=== PATIENT | male | born 1990 | race Caucasian/White ===

== ENCOUNTER → 2016-12-04 | Outpatient (CLI) | payer OTHER | LOC: BMCIMAGING 14:03 | PROVIDERS: ATTEND Family Medicine | DX: I86.1 Scrotal varices (principal); N43.3 Hydrocele, unspecified; N50.812 Left testicular pain ==

== ENCOUNTER 2018-05-19 21:39 | Observation (INO) | payer OTHER ==
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
[2018-05-19] MEDS ORDERED: IBUPROFEN 800 MG TAB PO ONE (22:00)
[2018-05-19] MEDS ORDERED: NS 1,000 ML IV ONE (23:07)
[2018-05-19] MEDS ORDERED: BUPIVACAINE 0.5% 30 ML SDV ONE (23:22)
[2018-05-19 23:35] LABS: PLATELET COUNT 219 10^3/uL (150-400)
[2018-05-19] MEDS ORDERED: HYDROmorphONE/DILAUDID 2 MG/ML INJ IVP ONE (23:38)
[2018-05-19] MEDS ORDERED: HYDROmorphONE/DILAUDID 1 MG/ML INJ ONE (23:38)
--- NOTE | 2018-05-20 00:04 | PDANEPAE ---
ANE History of Present Illness ruptured L testicle ANE Past Medical History - Pulmonary History Hx Oxygen in Use at Home: No - Endocrine History Hx Diabetes: No ANE Review of Systems Review of Systems: - Exercise capacity Exercise capacity: >=4 METS ANE Patient History - Allergies Allergies/Adverse Reactions: shellfish derived Allergy (Verified 05/19/18 21:41) - NPO status NPO Since - Liquids (Date): 05/19/18 NPO Since - Liquids (Time): 21:00 (seltzer water) NPO Since - Solids (Date): 05/19/18 NPO Since - Solids (Time): 16:30 (food) - Anes Hx Anes Hx: no prior problems - Smoking Hx Smoking Status: Former smoker - Alcohol Use Alcohol Use: Occasionally - Family Anes Hx Family Anes Hx: none ANE Labs/Vital Signs - Labs Result Diagrams: 05/19/18 23:20 05/19/18 23:20 - Vital Signs Blood Pressure: 137/82 Heart Rate: 91 Respiratory Rate: 16 O2 Sat (%): 99 Height: 193.04 cm Weight: 81.647 kg ANE Physical Exam - Airway Neck exam: FROM Mallampati Score: Class 1 Mouth exam: normal dental/mouth exam, walls - Pulmonary Pulmonary: no respiratory distress - Cardiovascular Cardiovascular: regular rate and rhythym - ASA Status ASA Status: I ANE Anesthesia Plan Anesthesia Plan: general endotracheal anesthesia
[2018-05-20] MEDS ORDERED: fentaNYL 100 MCG/2 ML INJ ONE (00:24)
[2018-05-20] MEDS ORDERED: PROPOFOL/EMULSION 500 MG/50 ML BOTTLE IV ONE (00:24)
[2018-05-20] MEDS ORDERED: LIDOCAINE 2% 100 MG/5 ML SYR ONE (00:28)
[2018-05-20] MEDS ORDERED: ceFAZolin 2 GM/DEXTROSE 100 ML IV ONE (00:30)
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
[2018-05-20] MEDS ORDERED: DEXAMETHASONE 4 MG/ML VIAL ONE ×2 (00:52)
[2018-05-20] MEDS ORDERED: ONDANSETRON 4 MG/2 ML VIAL ONE (00:52)
[2018-05-20] MEDS ORDERED: PROPOFOL 200 MG/20 ML VIAL ONE (01:17)
[2018-05-20] MEDS ORDERED: DEXAMETHASONE 4 MG/ML VIAL IVP PRN (01:42)
[2018-05-20] MEDS ORDERED: PHENYLEPHRINE HCL 100 MCG/ML SYR IVP PRN (01:42)
[2018-05-20] MEDS ORDERED: MEPERIDINE 25 MG/0.5 ML AMP IVP PRN (01:42)
[2018-05-20] MEDS ORDERED: HYDROCODONE/APAP 5/325 TAB PO PRN (01:42)
[2018-05-20] MEDS ORDERED: LABETALOL HCL 20 MG/4 ML INJ IVP PRN (01:42)
[2018-05-20] MEDS ORDERED: fentaNYL 100 MCG/2 ML INJ IVP PRN (01:42)
[2018-05-20] MEDS ORDERED: LR 500 ML IV PRN (01:42)
[2018-05-20] MEDS ORDERED: ACETAMINOPHEN 500 MG TAB PO PRN (01:42)
[2018-05-20] MEDS ORDERED: NALOXONE HCL 0.4 MG/ML INJ IVP PRN (01:42)
[2018-05-20] MEDS ORDERED: METOCLOPRAMIDE 10 MG/2 ML VIAL IVP PRN (01:42)
[2018-05-20] MEDS ORDERED: ALBUTEROL 3 ML DEYVIAL IH PRN (01:42)
[2018-05-20] MEDS ORDERED: ONDANSETRON 4 MG/2 ML VIAL IVP PRN (01:42)
[2018-05-20] MEDS ORDERED: oxyCODONE IR 5 MG TAB PO PRN (01:42)
[2018-05-20] MEDS ORDERED: PROMETHAZINE HCL 25 MG/ML INJ IVP PRN (01:42)
[2018-05-20] MEDS ORDERED: BACITRACIN ZINC 14.2 GM OINTTUBE TP ONE (01:48)
[2018-05-20] MEDS ORDERED: ACETAMINOPHEN 650 MG SUPP PR PRN (02:06)
[2018-05-20] MEDS ORDERED: ACETAMINOPHEN 325 MG TAB PO PRN (02:06)
--- NOTE | 2018-05-20 02:06 | POSTOPPROG ---
Post Op Note Date of Operation: 05/20/18 Surgeon: Maricarmen Vera Anesthesiologist: Isac Anesthesia: GET(General Endotracheal) Pre-op Diagnosis: left testicular rupture, left scrotal hematoma Post-op Diagnosis: same Indication: left testicular rupture Procedure: scrotal exploration, evacuation left testicular hematoma, repair tunica Findings: 1.5x2cm testicular rupture, hematoma Inf/Abcess present in the surg proc area at time of surgery?: No EBL: 50-100 Complications: none, patient tolerated procedure well Drains: Erwinna Specimen(s): seminiferous tubules extruded from testicle
[2018-05-20] MEDS ORDERED: D5W 1/2 NS 1,000 ML IV SCH (02:15)
--- NOTE | 2018-05-20 02:31 | POSTANESTH ---
Post Anesthetic Evaluation Cardiovascular Status: Normal, Stable Respiratory Status: Normal, Stable Level of Consciousness/Mental Status: Can Participate in Eval Pain Control: Adequate, Prn Tx Ordered Nausea/Vomiting Control: Adequate, Prn Tx Ordered Complications Possibly Related to Anesthesia: None Noted
[2018-05-20] MEDS: HYDROmorphONE/DILAUDID 1 MG/ML INJ IVP PRN ×2 (03:04→09:34)
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
[2018-05-20] MEDS: OXYCODONE/APAP 5/325 TAB PO PRN ×2 (07:50→12:12)
[2018-05-20 12:19] VITALS: BP 128/47
--- NOTE | 2018-05-20 12:35 | SOAPPROG ---
SOAP Progress Note Assessment/Plan: Assessment: s/p scrotal exploration, repair of testicular rupture. Plan: DC home today. Follow up Wednesday 8:45 at my office for drain removal. Ice to scrotum and scrotal support as needed for comfort. Discussed activity restrictions - no heavy living or strenuous activity for 4 weeks. 05/20/18 12:32 Subjective: Doing well. Pain managed OK w percocet. +ambulation Ki diet Objective: Vital Signs Temp Pulse Resp BP Pulse Ox 37.1 C 64 16 128/47 H 95 05/20/18 12:14 05/20/18 12:14 05/20/18 12:14 05/20/18 12:14 05/20/18 12:14 05/19/18 05/20/18 05/21/18 05:59 05:59 05:59 Intake Total 1350 Output Total 575 475 Balance 775 -475 Gen NAD A&O CV regular Lungs Normal effort Abd soft Ext warm scrotal incision CDI, left hemiscrotum edematous but soft. Eris w minimal output. Minimal drainage on dressing. - Pending Discharge Pending Discharge Within 24 Hours: Yes Pending Discharge Date: 05/21/18 Pending Discharge Time: 11:00 ICD10 Worksheet Patient Problems: Problems Problem Status Onset Rupture of testis Acute Scrotal hematoma Acute
== END 2018-05-20 14:30 | disposition home or self-care (01) ==
LOC: F3E 05-20 02:47
PROVIDERS: ADMIT Urology; ATTEND Urology
DX: S31.30XA Unspecified open wound of scrotum and testes, initial encounter (principal); S30.22XA Contusion of scrotum and testes, initial encounter; W50.1XXA Accidental kick by another person, initial encounter; Y93.75 Activity, martial arts; Z87.891 Personal history of nicotine dependence
CPT/HCPCS: 54670; 54700; 76870; G0378; 96374; J0690; J1100; J1170; J2001; J2405; J2704; J3010